=== PATIENT | male | born 1990 | race Caucasian/White ===

== ENCOUNTER 2018-10-18 20:15 | Emergency (ER) | payer BC ==
[2018-10-18] MEDS ORDERED: HYDROCODONE/APAP 10/325 TAB ONE (21:27)
[2018-10-18] MEDS ORDERED: DEXAMETHASONE 10 MG/ML VIAL ONE (21:27)
[2018-10-18] MEDS ORDERED: KETOROLAC 30 MG/ML INJ ONE (21:28)
[2018-10-18] MEDS ORDERED: DIAZEPAM 5 MG TABLET ONE (21:28)
--- NOTE | 2018-10-18 21:44 | ER ---
Nurse's Notes [facility] Name: Haroon Henry Age: 28 yrs Sex: Male : 1990 Arrival Date: 10/18/2018 Time: 20:35 Bed 18 Private MD: Diagnosis: Pain in left shoulder;Strain of muscle and tendon of back wall of thorax Presentation: 10/18 20:33 Presenting complaint: Patient states: Pain to left should x 1-2 weeks; States pain is lp1 becoming severe, unable to sleep, pain severe on movement of neck; Denies any trauma to left shoulder. Transition of care: patient was not received from another setting of care. Onset of symptoms was October 18, 2018. Risk Assessment: Do you want to hurt yourself or someone else? Patient reports no desire to harm self or others. Initial Sepsis Screen: Does the patient meet any 2 criteria? No. Patient's initial sepsis screen is negative. Does the patient have a suspected source of infection? No. Patient's initial sepsis screen is negative. Care prior to arrival: None. 20:33 Method Of Arrival: Ambulatory lp1 20:33 Acuity: AILYN 4 lp1 Historical: - Allergies: 20:36 Bactrim; lp1 - Home Meds: 20:36 None [Active]; lp1 - PMHx: 20:36 None; lp1 - PSHx: 20:36 Knee surgery; lp1 - Immunization history:: Adult Immunizations up to date. - Social history:: Smoking status: Patient uses tobacco products, chewing tobacco. - Ebola Screening: : No symptoms or risks identified at this time. - Family history:: not pertinent. Screenin:36 Abuse screen: Denies threats or abuse. Denies injuries from another. Nutritional lp1 screening: No deficits noted. Tuberculosis screening: No symptoms or risk factors identified. Fall Risk None identified. Assessment: 21:21 General: Appears in no apparent distress. comfortable, Behavior is calm, cooperative. ak1 Pain: Complains of pain in posterior cervical area and left subscapular area and left scapular area and left trapezius and left tricep and posterior aspect of left shoulder and left bicep and anterior aspect of left shoulder. Neuro: No deficits noted. Cardiovascular: No deficits noted. Respiratory: No deficits noted. GI: No signs and/or symptoms were reported involving the gastrointestinal system. : No signs and/or symptoms were reported regarding the genitourinary system. EENT: No signs and/or symptoms were reported regarding the EENT system. Derm: No signs and/or symptoms reported regarding the dermatologic system. Musculoskeletal: Range of motion: limited in left shoulder. 21:59 Reassessment: Patient appears in no apparent distress at this time. Patient and/or tl2 family updated on plan of care and expected duration. Pain level reassessed. Patient is alert, oriented x 3, equal unlabored respirations, skin warm/dry/pink. pt verbalized understanding of discharge instructions, need for follow up and prescription usage. Vital Signs: 20:35 BP 143 / 96; Pulse 56; Resp 18; Temp 97.9(O); Pulse Ox 98% on R/A; Weight 113.4 kg (R); lp1 Height 6 ft. 3 in. (190.50 cm); Pain 10/10; 21:21 BP 142 / 105; Pulse 56; Resp 18; Pulse Ox 98% on R/A; ak1 21:59 BP 133 / 93; Pulse 56; Resp 18; Pulse Ox 99% on R/A; tl2 20:35 Body Mass Index 31.25 (113.40 kg, 190.50 cm) lp1 ED Course: 20:35 Patient arrived in ED. am2 20:35 Triage completed. lp1 20:35 Arm band placed on right wrist. lp1 20:38 Florence Keen, RN is Primary Nurse. ak1 20:38 Miah Willoughby MD is Attending Physician. padmini 21:23 Patient has correct armband on for positive identification. Bed in low position. Call ak1 light in reach. Side rails up X 1. Adult w/ patient. Pulse ox on. NIBP on. 21:35 Chest Single View XRAY In Process Unspecified. EDMS 21:35 Shoulder Left (2 View) XRAY In Process Unspecified. EDMS 21:35 C Spine Ap/Lat XRAY In Process Unspecified. EDMS 21:43 Jed Milton MD is Referral Physician. padmini 21:59 No provider procedures requiring assistance completed. Patient did not have IV access tl2 during this emergency room visit. Sling applied to left arm. Administered Medications: 21:20 Drug: TORadol 60 mg Route: IM; Site: left gluteus; ak1 21:44 Follow up: Response: No adverse reaction ak1 21:20 Drug: [place] 10 mg-325 mg 1 tabs Route: PO; ak1 21:45 Follow up: Response: No adverse reaction ak1 21:20 Drug: Decadron 10 mg Route: IM; Site: right gluteus; ak1 21:45 Follow up: Response: No adverse reaction ak1 21:21 Drug: Valium 5 mg Route: PO; ak1 21:44 Follow up: Response: No adverse reaction ak1 Outcome: 21:43 Discharge ordered by MD. [place] 21:59 Discharged to home ambulatory, with family. tl2 21:59 Condition: stable 21:59 Discharge instructions given to patient, family, Instructed on discharge instructions, follow up and referral plans. medication usage, Demonstrated understanding of instructions, follow-up care, medications, Prescriptions given X 4. 22:01 Patient left the ED. tl2 Signatures: Dispatcher [employer] EDMS Miah Willoughby MD MD cha Pena, Laura RN RN lp1 Florence Keen RN RN ak1 Thea Winn RN RN tl2 Kimberly García
--- NOTE | 2018-10-18 21:44 | EDPHYS ---
Physician Documentation [facility] Name: Haroon Henry Age: 28 yrs Sex: Male : 1990 Arrival Date: 10/18/2018 Time: 20:35 Bed 18 Private MD: ED Physician Miah Willoughby HPI: 10/18 20:58 This 28 yrs old Male presents to ER via Ambulatory with complaints of leftv padmini uppewr back pain, left shoulder. 20:58 The patient or guardian complains of decreased range of motion, pain. The complaints padmini affect the anterior aspect of left shoulder, left bicep, posterior aspect of left shoulder and left tricep. Context: The problem was sustained at an unknown location. Onset: The symptoms/episode began/occurred 2 week(s) ago. Treatment prior to arrival includes: no previous treatment. The patient presents with pain that is acute, and decreased range of motion. The symptoms are located in the left trapezius, left scapular area and left subscapular area. Historical: - Allergies: 20:36 Bactrim; lp1 - Home Meds: 20:36 None [Active]; lp1 - PMHx: 20:36 None; lp1 - PSHx: 20:36 Knee surgery; lp1 - Immunization history:: Adult Immunizations up to date. - Social history:: Smoking status: Patient uses tobacco products, chewing tobacco. - Ebola Screening: : No symptoms or risks identified at this time. - Family history:: not pertinent. ROS: 20:58 Constitutional: Negative for fever, chills, and weight loss, Eyes: Negative for injury, padmini pain, redness, and discharge, ENT: Negative for injury, pain, and discharge, Neck: Negative for injury, pain, and swelling, Cardiovascular: Negative for chest pain, palpitations, and edema, Respiratory: Negative for shortness of breath, cough, wheezing, and pleuritic chest pain, Abdomen/GI: Negative for abdominal pain, nausea, vomiting, diarrhea, and constipation, Back: Negative for injury and pain, : Negative for injury, bleeding, discharge, and swelling, Skin: Negative for injury, rash, and discoloration, Neuro: Negative for headache, weakness, numbness, tingling, and seizure, Psych: Negative for depression, anxiety, suicide ideation, homicidal ideation, and hallucinations, Allergy/Immunology: Negative for hives, rash, and allergies, Endocrine: Negative for neck swelling, polydipsia, polyuria, polyphagia, and marked weight changes, Hematologic/Lymphatic: Negative for swollen nodes, abnormal bleeding, and unusual bruising. 20:58 MS/extremity: Positive for decreased range of motion, laceration, tenderness, of the posterior cervical area, left trapezius and left scapular area. Exam: 20:58 Constitutional: This is a well developed, well nourished patient who is awake, alert, padmini and in no acute distress. Head/Face: Normocephalic, atraumatic. Eyes: Pupils equal round and reactive to light, extra-ocular motions intact. Lids and lashes normal. Conjunctiva and sclera are non-icteric and not injected. Cornea within normal limits. Periorbital areas with no swelling, redness, or edema. ENT: Nares patent. No nasal discharge, no septal abnormalities noted. Tympanic membranes are normal and external auditory canals are clear. Oropharynx with no redness, swelling, or masses, exudates, or evidence of obstruction, uvula midline. Mucous membranes moist. Neck: Trachea midline, no thyromegaly or masses palpated, and no cervical lymphadenopathy. Supple, full range of motion without nuchal rigidity, or vertebral point tenderness. No Meningismus. Chest/axilla: Normal chest wall appearance and motion. Nontender with no deformity. No lesions are appreciated. Cardiovascular: Regular rate and rhythm with a normal S1 and S2. No gallops, murmurs, or rubs. Normal PMI, no JVD. No pulse deficits. Respiratory: Lungs have equal breath sounds bilaterally, clear to auscultation and percussion. No rales, rhonchi or wheezes noted. No increased work of breathing, no retractions or nasal flaring. Abdomen/GI: Soft, non-tender, with normal bowel sounds. No distension or tympany. No guarding or rebound. No evidence of tenderness throughout. Male : Normal genitalia with no discharge or lesions. Skin: Warm, dry with normal turgor. Normal color with no rashes, no lesions, and no evidence of cellulitis. Neuro: Awake and alert, GCS 15, oriented to person, place, time, and situation. Cranial nerves II-XII grossly intact. Motor strength 5/5 in all extremities. Sensory grossly intact. Cerebellar exam normal. Normal gait. Psych: Awake, alert, with orientation to person, place and time. Behavior, mood, and affect are within normal limits. 20:58 Back: pain, that is mild, that is moderate, ROM is painful, normal spinal alignment noted, CVA tenderness, is absent, muscle spasm, is appreciated in the left trapezius, left scapular area and left subscapular area. Vital Signs: 20:35 BP 143 / 96; Pulse 56; Resp 18; Temp 97.9(O); Pulse Ox 98% on R/A; Weight 113.4 kg (R); lp1 Height 6 ft. 3 in. (190.50 cm); Pain 10/10; 21:21 BP 142 / 105; Pulse 56; Resp 18; Pulse Ox 98% on R/A; ak1 21:59 BP 133 / 93; Pulse 56; Resp 18; Pulse Ox 99% on R/A; tl2 20:35 Body Mass Index 31.25 (113.40 kg, 190.50 cm) lp1 MDM: 20:39 Patient medically screened. [facility] 20:58 Data reviewed: vital signs, nurses notes, radiologic studies. [facility] 10/18 20:49 Order name: Chest Single View XRAY [facility] 10/18 20:49 Order name: Shoulder Left (2 View) XRAY [facility] 10/18 20:49 Order name: C Spine Ap/Lat XRAY [facility] 10/18 21:01 Order name: Sling; Complete Time: 21:58 padmini Administered Medications: 21:20 Drug: TORadol 60 mg Route: IM; Site: left gluteus; ak1 21:44 Follow up: Response: No adverse reaction ak1 21:20 Drug: [place] 10 mg-325 mg 1 tabs Route: PO; ak1 21:45 Follow up: Response: No adverse reaction ak1 21:20 Drug: Decadron 10 mg Route: IM; Site: right gluteus; ak1 21:45 Follow up: Response: No adverse reaction ak1 21:21 Drug: Valium 5 mg Route: PO; ak1 21:44 Follow up: Response: No adverse reaction ak1 Disposition: 10/18/18 21:43 Discharged to Home. Impression: Pain in left shoulder, Strain of muscle and tendon of back wall of thorax. - Condition is Stable. - Discharge Instructions: Back Pain, Adult, Musculoskeletal Pain, Shoulder Pain, Shoulder Pain, [id number], Back Pain, Adult, [id number]. - Prescriptions for Ibuprofen 600 mg Oral Tablet - take 1 tablet by ORAL route every 6 hours As needed take with food; 30 tablet. Tylenol- Codeine #3 300-30 mg Oral Tablet - take 2 tablet by ORAL route every 6 hours As needed; 30 tablet. Valium 5 mg Oral Tablet - take 1 tablet by ORAL route every 8 hours As needed; 20 tablet. Medrol (Roberto) 4 mg Oral Tablets, Dose Pack - take 1 tablet by ORAL route as directed - follow package instructions; 1 packet. - Medication Reconciliation Form, Thank You Letter, Antibiotic Education, Prescription Opioid Use form. - Follow up: Private Physician; When: 2 - 3 days; Reason: Recheck today's complaints, Continuance of care, Re-evaluation by your physician. Follow up: Jed Milton; When: 2 - 3 days; Reason: Recheck today's complaints, Continuance of care, Re-evaluation by your physician. - Problem is new. - Symptoms have improved. Signatures: Dispatcher [employer] EDMS Miah Willoughby MD MD cha Pena, Laura RN RN lp1 Florence Keen RN RN ak1 Thea Winn RN RN tl2 Corrections: (The following items were deleted from the chart) 22:01 21:43 10/18/2018 21:43 Discharged to Home. Impression: Pain in left shoulder; Strain of tl2 muscle and tendon of back wall of thorax. Condition is Stable. Discharge Instructions: Back Pain, Adult, Musculoskeletal Pain, Shoulder Pain, Shoulder Pain, [id number], Back Pain, Adult, [id number]. Prescriptions for Ibuprofen 600 mg Oral Tablet - take 1 tablet by ORAL route every 6 hours As needed take with food; 30 tablet, Tylenol-Codeine #3 300-30 mg Oral Tablet - take 2 tablet by ORAL route every 6 hours As needed; 30 tablet, Valium 5 mg Oral Tablet - take 1 tablet by ORAL route every 8 hours As needed; 20 tablet, Medrol (Roberto) 4 mg Oral Tablets, Dose Pack - take 1 tablet by ORAL route as directed - follow package instructions; 1 packet. and Forms are Medication Reconciliation Form, Thank You Letter, Antibiotic Education, Prescription Opioid Use. Follow up: Private Physician; When: 2 - 3 days; Reason: Recheck today's complaints, Continuance of care, Re-evaluation by your physician. Follow up: Jed Milton; When: 2 - 3 days; Reason: Recheck today's complaints, Continuance of care, Re-evaluation by your physician. Problem is new. Symptoms have improved. padmini
--- NOTE | 2018-10-18 22:24 | RAD REPORT ---
EXAM DESCRIPTION: RAD - Chest Single View - 10/18/2018 9:47 pm CLINICAL HISTORY: PAIN Chest pain. COMPARISON: No comparisons FINDINGS: Portable technique limits examination quality. The lungs are grossly clear. The heart is normal in size. No displaced fractures. IMPRESSION: No acute intrathoracic process suspected.
--- NOTE | 2018-10-18 22:27 | RAD REPORT ---
EXAM DESCRIPTION: RAD - C Spine Ap/Lat - 10/18/2018 9:47 pm CLINICAL HISTORY: PAIN Radiculopathy COMPARISON: <Comparisons> FINDINGS: Cervical bodies are normal in height and alignment.No fracture or acute bony process seen. No disc space narrowing.Small posterior osteophytes noted and C5-6 and C6-7. No prevertebral soft tissue thickening or other suspicious soft tissue finding. IMPRESSION: Minimal lower cervical spondylosis.
--- NOTE | 2018-10-18 22:28 | RAD REPORT ---
EXAM DESCRIPTION: RAD - Shoulder Left 2 View - 10/18/2018 9:47 pm CLINICAL HISTORY: PAIN COMPARISON: No comparisons FINDINGS: No bone or joint abnormality detected.
== END 2018-10-18 22:01 | disposition home or self-care (01) ==
LOC: ER 20:15
DX: S29.012A Strain of muscle and tendon of back wall of thorax, initial encounter (principal); M25.512 Pain in left shoulder; Z72.0 Tobacco use
CPT/HCPCS: 71045; 72040; 96372; 99284; J1100

== ENCOUNTER 2019-10-11 15:06 | Emergency (ER) | payer BC ==
[2019-10-11 16:51] LABS: Absolute Lymphocytes (CBC) 2.5 K/uL (0.7-4.9); Basophils % 0.7 % (0-1.3); Lymphocytes % 29.5 % (15.3-44.8); RBC Red Blood Cell Count 5.33 M/uL (4.33-5.43)
[2019-10-11] MEDS ORDERED: NA CHLORIDE 0.9% 250 ML ONE (16:51)
[2019-10-11] MEDS ORDERED: METOCLOPRAMIDE 10 MG/2mL INJ ONE (16:51)
[2019-10-11 17:05] LABS: Potassium 4.1 mmol/L (3.5-5.1)
--- NOTE | 2019-10-11 17:08 | RAD REPORT ---
EXAM DESCRIPTION: CT - Head Brain Wo Cont - 10/11/2019 4:55 pm CLINICAL HISTORY: headache, vomiting Headache, drowsiness COMPARISON: No comparisons TECHNIQUE: All CT scans are performed using dose optimization technique as appropriate and may inclu de automated exposure control or mA/KV adjustment according to patient size. FINDINGS: No intracranial hemorrhage, hydrocephalus or extra-axial fluid collection.No areas of brai n edema or evidence of midline shift. Moderate ethmoid air cell opacification. The paranasal sinuses and mastoids are otherwise clear. The calvarium is intact. Subcutaneous calcified nodules seen in the scalp. IMPRESSION: No acute intracranial abnormality.
--- NOTE | 2019-10-11 18:27 | RAD REPORT ---
EXAM DESCRIPTION: CT - Head angio - 10/11/2019 6:09 pm CLINICAL HISTORY: HEADACHE Headache, drowsiness COMPARISON: Head Brain Wo Cont dated 10/11/2019 TECHNIQUE: CT angiography of the head was performed with MIPs. All CT scans are performed using dose optimization technique as appropriate and may include automated exposure control or mA/KV adjustment according to patient size. FINDINGS: No evidence of aneurysm is detected. No flow-limiting stenosis or vascular malformation id entified. Antegrade flow is seen in the vertebral arteries. The vertebral arteries are codominant. The visualized dural venous sinuses are patent. Moderate opacification of the ethmoid air cells IMPRESSION: No significant flow abnormality is detected.
--- NOTE | 2019-10-11 18:37 | EDPHYS ---
Physician Documentation [facility] Name: Haroon Henry Age: 29 yrs Sex: Male : 1990 Arrival Date: 10/11/2019 Time: 15:08 Bed 20 Private MD: ED Physician Miah Willoughby HPI: 10/10 16:28 This 29 yrs old Male presents to ER via Ambulatory with complaints of jmm Headache > 24hrs Old. 16:28 The patient complains of pain to the right eye and left eye. Onset: The jmm symptoms/episode began/occurred gradually, 3 day(s) ago. Associated signs and symptoms: Pertinent positives: nausea. Headache History: Denies prior headaches. This is a 29 year old male with no chronic medical conditions that presents to the ED with complaints of bilateral retrorbital headache beginning this past Wednesday. Patient was examined by ophthalmology this past Wednesday with no concerning findings. patient states he continues to have the headache today. Historical: - Allergies: 15:21 Bactrim; tw2 - Home Meds: 15:21 None [Active]; tw2 - PMHx: 15:21 None; tw2 - PSHx: 15:21 Knee surgery; tw2 - Immunization history:: Adult Immunizations. - Social history:: Smoking status: Patient/guardian denies using. ROS: 16:28 Constitutional: Negative for fever, chills, and weight loss, Cardiovascular: Negative jmm for chest pain, palpitations, and edema, Respiratory: Negative for shortness of breath, cough, wheezing, and pleuritic chest pain. 16:28 Neuro: Positive for headache. 16:28 All other systems are negative. Exam: 16:28 Constitutional: This is a well developed, well nourished patient who is awake, alert, jmm and in no acute distress. Head/Face: atraumatic. Eyes: EOMI, no conjunctival erythema appreciated ENT: Moist Mucus Membranes Neck: Trachea midline, Supple Chest/axilla: Normal chest wall appearance and motion. Cardiovascular: Regular rate and rhythm. No edema appreciated Respiratory: Normal respirations, no respiratory distress appreciated Abdomen/GI: Non distended, soft Back: Normal ROM Skin: General appearance color normal MS/ Extremity: Moves all extremities, no obvious deformities appreciated, no edema noted to the lower extremities Neuro: Awake and alert, normal gait Psych: Behavior is normal, Mood is normal, Patient is cooperative and pleasant Vital Signs: 15:17 BP 137 / 82; Pulse 55; Resp 18; Temp 98.0(O); Pulse Ox 98% on R/A; Weight 117.93 kg tw2 (R); Height 6 ft. 3 in. (190.50 cm); Pain 5/10; 17:05 BP 128 / 88; Pulse 50; Resp 18; Pulse Ox 100% on R/A; vc 18:15 BP 137 / 84; Pulse 49; Resp 18; Pulse Ox 100% on R/A; vc 15:17 Body Mass Index 32.50 (117.93 kg, 190.50 cm) tw2 MDM: 16:18 Patient medically screened. padmini 18:34 Data reviewed: vital signs, nurses notes. Counseling: I had a detailed discussion with [facility] the patient and/or guardian regarding: the historical points, exam findings, and any diagnostic results supporting the discharge/admit diagnosis, lab results, radiology results, the need for outpatient follow up, to return to the emergency department if symptoms worsen or persist or if there are any questions or concerns that arise at home. ED course: Pain alleviated in the ED. CT and CTA unremarkable. I do not suspect SAH. Patient is advised to follow up with neurology for further evaluation. Patient is otherwise given strict return precautions. Patient understood and agrees with the plan of care. . 10/10 16:27 Order name: CBC with Diff; Complete Time: 16:58 [facility] 10/10 16:27 Order name: BMP; Complete Time: 17:26 [facility] 10/10 16:27 Order name: CT Head Brain wo Cont; Complete Time: 18:29 [facility] 10/10 17:45 Order name: CT Head Angio; Complete Time: 18:34 [facility] 10/10 16:27 Order name: Saline Lock; Complete Time: 17:13 [facility] Administered Medications: 17:12 Drug: NS 0.9% 250 ml Route: IV; Rate: bolus; Site: right antecubital; vc 17:12 Drug: Reglan 10 mg Route: IVP; Site: right antecubital; vc Disposition: 10/11 18:42 Co-signature as Attending Physician, Miah Willoughby MD I agree with the assessment and [facility] plan of care. Disposition: 10/11/19 18:36 Discharged to Home. Impression: Headache. - Condition is Stable. - Discharge Instructions: Migraine Headache. - Medication Reconciliation Form, Thank You Letter, Antibiotic Education, Prescription Opioid Use form. - Follow up: Augie Castro MD; When: 2 - 3 days; Reason: Recheck today's complaints, Continuance of care, Re-evaluation by your physician. Signatures: Dispatcher [employer] EDMiah Pino MD MD cha Mickail, Joel, PA PA jmm Williams, Irene, RN RN iw Jamila Stephen RN RN tw2 Sofiya Mike RN RN vc Corrections: (The following items were deleted from the chart) 10/10 18:52 18:36 10/11/2019 18:36 Discharged to Home. Impression: Headache. Condition is Stable. iw Forms are Medication Reconciliation Form, Thank You Letter, Antibiotic Education, Prescription Opioid Use. Follow up: Augie Castro; When: 2 - 3 days; Reason: Recheck today's complaints, Continuance of care, Re-evaluation by your physician. gisele
--- NOTE | 2019-10-11 18:37 | ER ---
Nurse's Notes [facility] Name: Haroon Henry Age: 29 yrs Sex: Male : 1990 Arrival Date: 10/11/2019 Time: 15:08 Bed 20 Private MD: Diagnosis: Headache Presentation: 10/10 15:17 Chief complaint: Patient states: i have been having real bad migraines behind both my tw2 eyes since Wednesday, i am sensitive to sunlight and i feel tired and Advil is not helping, i went to the eye dr Wednesday and they didn't find anything wrong with my eyes. Coronavirus screen: Patient denies a cough. Patient denies shortness of breath or difficulty breathing. Patient denies measured and/or subjective temperature greater than 100.4F prior to today's visit. Patient denies travel on a cruise ship or to a country the [facility] currently lists as an affected area. Patient denies contact with known and/or suspected case of COVID-19. Ebola Screen: Patient denies travel to an Ebola-affected area in the 21 days before illness onset. Initial Sepsis Screen: Does the patient meet any 2 criteria? No. Patient's initial sepsis screen is negative. Does the patient have a suspected source of infection? No. Patient's initial sepsis screen is negative. Risk Assessment: Do you want to hurt yourself or someone else? Patient reports no desire to harm self or others. Onset of symptoms was October 11, 2019. 15:17 Method Of Arrival: Ambulatory tw2 15:17 Acuity: AILYN 3 tw2 Triage Assessment: 15:19 Headache History: Denies prior headaches. General: Appears in no apparent distress. tw2 well groomed, Behavior is calm, cooperative, appropriate for age. Pain: Complains of pain in forehead, right eye, left eye, right rastafari and left rastafari Pain currently is 5 out of 10 on a pain scale. at worst was 10 out of 10 on a pain scale. Pain began "Wednesday, and i threw up and it had a little bit of blood in it" Also complains of photophobia. Neuro: Reports headache frontal area. Historical: - Allergies: 15:21 Bactrim; tw2 - Home Meds: 15:21 None [Active]; tw2 - PMHx: 15:21 None; tw2 - PSHx: 15:21 Knee surgery; tw2 - Immunization history:: Adult Immunizations. - Social history:: Smoking status: Patient/guardian denies using. Screenin:44 Abuse screen: Denies threats or abuse. Nutritional screening: No deficits noted. tw2 Tuberculosis screening: No symptoms or risk factors identified. Fall Risk None identified. Assessment: 16:30 General: Appears in no apparent distress. uncomfortable, ill, Behavior is calm, vc cooperative, appropriate for age. Pain: Complains of pain in left rastafari and right rastafari and forehead. Pain: Pain does not radiate. Pain currently is 5 out of 10 on a pain scale. at worst was 10 out of 10 on a pain scale. Quality of pain is described as pressure, squeezing, tender, Pain began 2-3 days ago. Neuro: Level of Consciousness is awake, alert, obeys commands, Oriented to person, place, time, situation, Appropriate for age. Cardiovascular: Patient's skin is warm and dry. Respiratory: Airway is patent Respiratory effort is even, unlabored, Respiratory pattern is regular, symmetrical. GI: No signs and/or symptoms were reported involving the gastrointestinal system. : No signs and/or symptoms were reported regarding the genitourinary system. Derm: Skin is intact, is healthy with good turgor, Skin temperature is warm. 17:30 Reassessment: Patient appears in no apparent distress at this time. Patient and/or vc family updated on plan of care and expected duration. Pain level reassessed. Patient is alert, oriented x 3, equal unlabored respirations, skin warm/dry/pink. 18:30 Reassessment: Patient appears in no apparent distress at this time. Patient and/or vc family updated on plan of care and expected duration. Pain level reassessed. Patient is alert, oriented x 3, equal unlabored respirations, skin warm/dry/pink. Patient states feeling better. Patient states symptoms have improved. Vital Signs: 15:17 BP 137 / 82; Pulse 55; Resp 18; Temp 98.0(O); Pulse Ox 98% on R/A; Weight 117.93 kg tw2 (R); Height 6 ft. 3 in. (190.50 cm); Pain 5/10; 17:05 BP 128 / 88; Pulse 50; Resp 18; Pulse Ox 100% on R/A; vc 18:15 BP 137 / 84; Pulse 49; Resp 18; Pulse Ox 100% on R/A; vc 15:17 Body Mass Index 32.50 (117.93 kg, 190.50 cm) tw2 ED Course: 15:08 Patient arrived in ED. fj1 15:10 Armaan Dinh PA is PHCP. jmm 15:10 Miah Willoughby MD is Attending Physician. jmm 15:19 Triage completed. tw2 15:19 Arm band placed on. tw2 16:18 Bed in low position. Call light in reach. Adult w/ patient. tw2 16:30 Sofiya Mike, RN is Primary Nurse. vc 16:55 CT Head Brain wo Cont In Process Unspecified. EDMS 18:10 CT Head Angio In Process Unspecified. EDMS 18:36 Augie Castro MD is Referral Physician. [facility] 18:50 No provider procedures requiring assistance completed. IV discontinued, intact, vc bleeding controlled, No redness/swelling at site. Pressure dressing applied. Administered Medications: 17:12 Drug: NS 0.9% 250 ml Route: IV; Rate: bolus; Site: right antecubital; vc 17:12 Drug: Reglan 10 mg Route: IVP; Site: right antecubital; vc Outcome: 18:36 Discharge ordered by . [facility] 18:50 Discharged to home ambulatory, with significant other. vc 18:50 Condition: good 18:50 Discharge instructions given to patient, Instructed on discharge instructions, follow up and referral plans. Demonstrated understanding of instructions, follow-up care. 18:52 Patient left the ED. iw Signatures: Dispatcher [employer] EDMS Armaan Dinh PA PA Libzet Mahmood, RN RN iw Jamila Stephen RN RN tw2 Sofiya Mike, RONI RN Nirmal Muse fj
[2019-10-11 18:58] VITALS: TEMP 98
[2019-10-11 18:59] VITALS: BP 128/88; O2SAT 100
== END 2019-10-11 18:52 | disposition home or self-care (01) ==
LOC: ER 15:06
DX: R51 Headache (principal); Z88.1 Allergy status to other antibiotic agents
CPT/HCPCS: 85025; 80048; 36415; 70450; 70496; 96375; 96374; 99283; Q9967; J2765; J7030

== ENCOUNTER 2021-11-13 11:47 | Emergency (ER) | payer BC, SELFPAY ==
--- NOTE | 2021-11-13 14:15 | RAD REPORT ---
EXAM DESCRIPTION: RAD - Chest Single View - 11/13/2021 2:02 pm CLINICAL HISTORY: COUGH Chest pain. COMPARISON: Chest Single View dated 10/18/2018 FINDINGS: Portable technique limits examination quality. The lungs are grossly clear. The heart is normal in size. No displaced fractures. IMPRESSION: No acute intrathoracic process suspected.
[2021-11-13] MEDS ORDERED: MORPHINE 4 MG/ML SYR ONE (14:53)
[2021-11-13] MEDS ORDERED: ONDANSETRON 4 MG/2 ML VIAL ONE (14:53)
--- NOTE | 2021-11-13 14:55 | ER ---
Nurse's Notes [facility] Name: Haroon Henry Age: 31 yrs Sex: Male : 1990 Arrival Date: 11/13/2021 Time: 11:47 Bed 18 Private MD: Diagnosis: Insomnia;Hemoptysis Presentation: 11/13 11:50 Chief complaint: Patient states: was coughing up blood this morning, has not been iw getting any sleep has been exhausted for past week, no fever , he coughed up bright red blood this morning , takes tylenol daily for back and knee pain. Coronavirus screen: Client presents with at least one sign or symptom that may indicate coronavirus-19. Ebola Screen: Patient negative for fever greater than or equal to 101.5 degrees Fahrenheit, and additional compatible Ebola Virus Disease symptoms Patient denies exposure to infectious person. Patient denies travel to an Ebola-affected area in the 21 days before illness onset. No symptoms or risks identified at this time. Initial Sepsis Screen: Does the patient meet any 2 criteria? No. Patient's initial sepsis screen is negative. Does the patient have a suspected source of infection? No. Patient's initial sepsis screen is negative. Risk Assessment: Do you want to hurt yourself or someone else? Patient reports no desire to harm self or others. Onset of symptoms was November 13, 2021. 11:50 Method Of Arrival: Ambulatory iw 11:50 Acuity: AILYN 3 iw Triage Assessment: 12:00 General: Appears distressed, uncomfortable, Behavior is cooperative, appropriate for bp age, anxious. Pain: Denies pain. EENT: No deficits noted. Neuro: Reports INSOMNIA. Cardiovascular: No deficits noted. Respiratory: No deficits noted. GI: No signs and/or symptoms were reported involving the gastrointestinal system. : No signs and/or symptoms were reported regarding the genitourinary system. Derm: No deficits noted. Musculoskeletal: No deficits noted. Historical: - Allergies: 11:53 Bactrim; iw - Home Meds: 11:53 None [Active]; iw - PMHx: 11:53 None; iw - Social history:: Smoking status: Patient denies any tobacco usage or history of. Screenin:00 Abuse screen: Denies threats or abuse. Denies injuries from another. Nutritional bp screening: No deficits noted. Tuberculosis screening: No symptoms or risk factors identified. Fall Risk None identified. Assessment: 12:00 General: SEE TRIAGE NOTE. bp Vital Signs: 11:50 BP 143 / 93; Pulse 48; Resp 16; Temp 97.7; Pulse Ox 98% on R/A; Weight 113.4 kg; Height iw 6 ft. 3 in. (190.50 cm); 11:50 Body Mass Index 31.25 (113.40 kg, 190.50 cm) ED Course: 11:47 Patient arrived in ED. am2 11:53 Triage completed. iw 11:54 Ralph Parker MD is Attending Physician. jr11 11:54 Arm band placed on. iw 12:00 Patient has correct armband on for positive identification. Bed in low position. Call bp light in reach. Side rails up X2. 12:14 Davy Warner, RN is Primary Nurse. bp 14:04 Chest Single View XRAY In Process Unspecified. EDMS Administered Medications: No medications were administered Medication: 12:00 VIS not applicable for this client. bp Outcome: 14:55 Discharge ordered by . jr11 15:23 Patient left the ED. iw Signatures: Dispatcher [employer] EDMS Lizbet Goff RN RN Kimberly García formerly [facility] Davy Warner, RN RN Ralph Parker MD MD jr11
--- NOTE | 2021-11-13 14:55 | EDPHYS ---
Physician Documentation [facility] Name: Haroon Henry Age: 31 yrs Sex: Male : 1990 Arrival Date: 11/13/2021 Time: 11:47 Bed 18 Private MD: ED Physician Ralph Parker HPI: 11/13 13:13 This 31 yrs old Male presents to ER via Ambulatory with complaints of not sleeping, jr11 coughing spell. 13:13 Is a 31-year-old male that had a coughing spell this morning, "hacking", he said he did jr11 cough up mostly clear phlegm with a streak of blood. This resolved. Patient states he often has hacking spells after brushing his teeth, this has happened before 1 time, resolved on its own. No shortness of breath no chest pain, no concerns. Patient also with difficulty getting restful sleep, denies any chest pain, no SI and HI.. Historical: - Allergies: 11:53 Bactrim; iw - Home Meds: 11:53 None [Active]; iw - PMHx: 11:53 None; iw - Social history:: Smoking status: Patient denies any tobacco usage or history of. ROS: 13:13 All other systems are negative. jr11 Exam: 13:13 Constitutional: This is a well developed, well nourished patient who is awake, alert, jr11 and in no acute distress. Head/Face: Normocephalic, atraumatic. Eyes: Extra-ocular motions intact. Lids and lashes normal. Conjunctiva and sclera are non-icteric and not injected. Cornea within normal limits. Periorbital areas with no swelling, redness, or edema. ENT: Nares patent. No nasal discharge, no septal abnormalities noted. Oropharynx with no redness, swelling, or masses, exudates, or evidence of obstruction, uvula midline. Mucous membranes moist. Neck: Trachea midline, no thyromegaly or masses palpated, and no cervical lymphadenopathy. Supple, full range of motion without nuchal rigidity, or vertebral point tenderness. No Meningismus. Chest/axilla: Normal chest wall appearance and motion. Nontender with no deformity. No lesions are appreciated. Cardiovascular: Regular rate and rhythm with a normal S1 and S2. No gallops, murmurs, or rubs. Normal PMI, no JVD. No pulse deficits. Respiratory: Lungs have equal breath sounds bilaterally, clear to auscultation and percussion. No rales, rhonchi or wheezes noted. No increased work of breathing, no retractions or nasal flaring. Abdomen/GI: Soft, non-tender, with normal bowel sounds. No distension or tympany. No guarding or rebound. No evidence of tenderness throughout. Back: No spinal tenderness. No costovertebral tenderness. Full range of motion. MS/ Extremity: Pulses equal, no cyanosis. Neurovascular intact. Full, normal range of motion. Neuro: Awake and alert, GCS 15, oriented to person, place, time, and situation. No gross motor or sensory deficits. Vital Signs: 11:50 BP 143 / 93; Pulse 48; Resp 16; Temp 97.7; Pulse Ox 98% on R/A; Weight 113.4 kg; Height iw 6 ft. 3 in. (190.50 cm); 11:50 Body Mass Index 31.25 (113.40 kg, 190.50 cm) iw MDM: 12:07 Patient medically screened. jr11 13:13 Differential Diagnosis bronchitis, irritation airway . Data reviewed: vital signs, jr11 nurses notes. ED course: Patient is a 31-year-old with a coughing spell, subsequent small amount of blood. No more coughing, no more hemoptysis, vitals are normal. Patient to follow-up primary care, if x-rays negative. No risk factors for TB, no concern for PE.. 11/13 12:06 Order name: Chest Single View XRAY; Complete Time: 14:54 [facility] Administered Medications: No medications were administered Disposition Summary: 11/13/21 14:55 Discharge Ordered Location: Home jr11 Condition: Fair jr11 Diagnosis - Insomnia jr11 - Hemoptysis jr11 Followup: jr11 - With: Private Physician - When: 1 - 2 days - Reason: Re-evaluation by your physician Discharge Instructions: - Discharge Summary Sheet jr11 - Insomnia jr11 - Cough, Adult jr11 Forms: - Work release form jl7 - Medication Reconciliation Form jr11 - Thank You Letter jr11 - Antibiotic Education jr11 - Prescription Opioid Use jr11 Prescriptions: - Hydroxyzine HCl 25 mg Oral Tablet - take 1 tablet by ORAL route at night As needed; 30 tablet; Refills: 0, Product jr11 Selection Permitted Signatures: Dispatcher [employer] Lizbet Liang RN RN iw Peltier, Brian, RN RN bp Rosillo, Jose, MD MD jr11
[2021-11-13 15:36] VITALS: BP 143/93; TEMP 97.7; O2SAT 98
== END 2021-11-13 15:23 | disposition home or self-care (01) ==
LOC: ER 11:47
DX: G47.00 Insomnia, unspecified (principal); R04.2 Hemoptysis
CPT/HCPCS: 71045; 99282; J2405